=== PATIENT | female | born 1995 | race Caucasian/White ===

== ENCOUNTER → 2021-07-22 | Outpatient (CLI) | payer OTHER ==
--- NOTE | 2021-07-23 06:59 | MR ---
EXAMINATION TYPE: MR brain wo/w con DATE OF EXAM: 07/22/2021 COMPARISON: NONE HISTORY: 25-year-old female Q07.00, Headaches, Chiari malformation decompression TECHNIQUE: Multiplanar, multisequence images of the brain and brainstem were acquired before and aft er administration of 6 mL IV Gadavist. Diffusion weighted imaging is performed. FINDINGS: No evidence for acute infarction, hemorrhage, mass, mass effect, midline shift, herniation, effacemen t of basal cisterns, or extra-axial fluid collection. The ventricles and sulci are age-appropriate. Major intracranial flow voids are intact. T2/FLAIR weighted sequences show no white matter signal abnormality. Midline structures demonstrate normal morphology. Post surgical changes of the cerebellar/suboccipital decompression with craniectomy. There is some re sidual 4 mm of cerebellar tonsillar ectopia and some crowding on the right, refer to sagittal image 1 7. Post contrast images demonstrate no evidence of pathologic enhancement. Dural venous sinuses are pat ent. Moderate mucosal thickening ethmoid air cells. Slight leftward nasal septal deviation. Globes are int act. IMPRESSION: 1. No acute intracranial abnormality seen. No enhancing intracranial lesions. 2. Previous suboccipital decompression. 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 3. Moderate chronic ethmoid sinus disease.
== END | disposition home or self-care (01) ==
LOC: RADMRIMAIN 10:38
PROVIDERS: ATTEND Family Medicine
DX: G93.5 Compression of brain (principal); J32.2 Chronic ethmoidal sinusitis
CPT/HCPCS: 70553; A9585

== ENCOUNTER → 2021-09-02 | Outpatient (CLI) | payer OTHER ==
--- NOTE | 2021-09-02 10:32 | US ---
EXAMINATION TYPE: US gallbladder DATE OF EXAM: 09/02/2021 COMPARISON: NONE CLINICAL HISTORY: R1011 RT UPPER QUAD PAIN. RUQ pain. Patient had fibromas removed in 2018 from the a [facility]. EXAM MEASUREMENTS: Liver Length: 12.4 cm Gallbladder Wall: 0.2 cm CBD: 0.3 cm Right Kidney: 10.8 x 5.8 x 4.2 cm Exam is limited due to overlying bowel gas. Pancreas: Slightly limited visibility of tail. Liver: Appears coarse in echotexture. Gallbladder: Appears anechoic. Evidence for sonographic Field's sign: No CBD: Portions seen appear wnl Right Kidney: No hydronephrosis or masses seen IMPRESSION: 1. No discrete ultrasound abnormality right upper quadrant.
== END | disposition home or self-care (01) ==
LOC: RADUSWWP 08:30
PROVIDERS: ATTEND Family Medicine
DX: R10.11 Right upper quadrant pain (principal)
CPT/HCPCS: 76705

== ENCOUNTER → 2021-09-27 | Outpatient (CLI) | payer OTHER ==
--- NOTE | 2021-09-27 16:00 | CT ---
EXAMINATION TYPE: CT abdomen pelvis w con DATE OF EXAM: 09/27/2021 COMPARISON: No previous CT scan is available for comparison HISTORY: abdominal pain, nausea, vomiting, diarrhea CT DLP: 401.9 mGycm Automated exposure control for dose reduction was used. TECHNIQUE: Helical acquisition of images was performed from the lung bases through the pelvis. CONTRAST: Performed with Oral Contrast and with IV Contrast, patient injected with 100 mL of Isovue 300. FINDINGS: LUNG BASES: No significant abnormality is appreciated. LIVER/GB: No significant abnormality is appreciated. PANCREAS: No significant abnormality is seen. SPLEEN: No significant abnormality is seen. ADRENALS: No significant abnormality is seen. KIDNEYS: No significant abnormality is seen. FREE AIR: No free air is visualized. RETROPERITONEAL ADENOPATHY: None visualized REPRODUCTIVE ORGANS: Questionable vaginal pessary. No gross uterine or adnexal mass. URINARY BLADDER: No significant abnormality is seen. PELVIC ADENOPATHY: No pathologically enlarged pelvic lymph nodes. OSSEOUS STRUCTURES: Unremarkable visualized bones. BOWEL: Grossly unremarkable stomach, duodenum and small bowel. Diffuse mild wall thickening of the c olon, nonspecific. Chronic colitis cannot be excluded. No evidence of acute appendicitis. OTHER: Unremarkable abdominal aorta. Minimal presacral fluid. IMPRESSION: Nonspecific mild diffuse wall thickening of the colon, chronic colitis can't be excluded, for clinica l correlation and further workup. Otherwise no definite acute abnormality or suspicious lesion seen i n the abdomen or the pelvis.
== END | disposition home or self-care (01) ==
LOC: RADCTMAIN 11:47
PROVIDERS: ATTEND Family Medicine
DX: K63.89 Other specified diseases of intestine (principal)
CPT/HCPCS: 74177; Q9967

== ENCOUNTER → 2022-04-13 | Outpatient (CLI) | payer BC ==
--- NOTE | 2022-04-15 13:27 | MR ---
EXAMINATION TYPE: MR femur/thigh LT wo con, MR femur/thigh RT wo con DATE OF EXAM: 04/13/2022 6:57 AM CLINICAL INDICATION:Female, 26 years old with history of Q85.01 NEUROFIBROMATOSIS, TYPE 1; COMPARISON: Collateral side same day. 08/17/2021 MRI femur. TECHNIQUE: Multiplanar multisequence bilateral thigh MRI without IV contrast including proton density , T2 sequences. FINDINGS: Multiple presumably peripheral nerve sheath tumors given history of neurofibromatosis type I. Example s of these lesions which are lower T1 high T2/high PD signal: Medial and anterior to the left biceps femoris long head series 701 image 25 in the myofascial planes measuring up to 18 x 15 mm. Left inner thigh subcutaneous lesion measuring 6 mm left anterior thigh myofascial plane measuring 14 x 8 mm. No evidence for plexiform neurofibromas. No evidence for acute fracture no evidence for muscular atrophy. Bone marrow signal is similar to elli or on 08/17/2021. Vascular structures appear within appropriate limits. Visualized hips and knee joints are within norm al limits. IMPRESSION: 1. Significant change from prior, Bilateral lesions most consistent with peripheral nerve sheath braxton ors such as neurofibromas in setting of neurofibromatosis type 1. No plexiform neurofibromas identif ied. No suspicious masses. 2. No obvious acute process within the thighs bilaterally.
== END | disposition home or self-care (01) ==
LOC: RADMRIMAIN 06:02
PROVIDERS: ATTEND Family Medicine
DX: Q85.01 Neurofibromatosis, type 1 (principal)

== ENCOUNTER 2022-07-21 08:04 | Day surgery (SDC) | payer BC ==
[2022-07-15 13:41] VITALS: BMI 24.0
[~2022-07-21 08:04] MED LIST: SODIUM CHLORIDE 0.9% 1,000 ML IV SCH
[2022-07-21 08:25] VITALS: BP 115/72; PULSE 90; RESP 16; TEMP 98.6
[2022-07-21] MEDS ORDERED: SODIUM CHLORIDE 0.9% 500 ML 500 ML IV ONE (09:00)
--- NOTE | 2022-07-21 19:02 | P.EPPROC ---
- EP Procedure Note Electrophysiology Procedure Note: Diagnosis Recurrent syncope Baseline twelve-lead EKG shows sinus mechanism normal FL narrow QRS normal ST segments no delta waves heart rate 80 beats a minute Tilt table test per protocol Baseline blood pressure 119/65 mmHg, Baseline heart rate 79 beats a minute Patient was tilted upright at an angle of 70 per protocol Mild fluctuations in blood pressure noted down to 91/50 mmHg intermittently, associated with mild increase in heart rate. During such periods the patient complained of nausea, warmth and weakness However her blood pressure will normalize subsequently No syncope Impression Normal twelve-lead EKG Neurocardiogenic phenomenon with mild increase in heart rate and mild drop in blood pressure from baseline with associated symptoms of nausea warm and weakness No loss of consciousness
== END 2022-07-21 09:53 | disposition home or self-care (01) ==
LOC: CATHEP 08:04
PROVIDERS: ATTEND Internal Medicine Clinical Cardiac Electrophysiology
DX: R55 Syncope and collapse (principal); R00.2 Palpitations; Q85.01 Neurofibromatosis, type 1
CPT/HCPCS: 81025; 82533; 93660

== ENCOUNTER → 2023-01-09 | Outpatient (CLI) | payer BC ==
--- NOTE | 2023-01-12 08:24 | MR ---
EXAMINATION TYPE: MR brain wo/w con DATE OF EXAM: 01/09/2023 10:11 PM CLINICAL INDICATION:Female, 27 years old with history of G93.5, Chiari malformation type 1, Migraines , Follow-up on Chiari COMPARISON: 07/22/2021 TECHNIQUE: Multi planar, multi sequence imaging was performed through the brain including: T1, T2, In version recovery, susceptibility weighted imaging and gradient echo imaging and Diffusion weighted im aging. The patient was then given intravenous contrast and multi planar, T1 fat-saturation images wer e obtained. IV Contrast: 5.5 cc Gadavist FINDINGS: Cerebellar tonsil extends 4 mm below the foramen magnum. Susceptibility artifact in the posterior nec k soft tissues compatible with surgical change. There is hemosiderin deposition identified with corona ing artifact on susceptibility weighted imaging. No abnormal postcontrast enhancement in the surgical bed. The allen-white junctions, ventricular system, basal cisterns appear unremarkable. Diffusion-roby ghted imaging shows no evidence of restricted diffusion to suggest acute/subacute infarct. Intracrani al arterial flow voids are maintained. Midline structures show no abnormality. After administration of gadolinium, no abnormal enhancement is seen. The bone marrow signal is within normal limits. Paranasal sinuses and mastoid air cells: No significant paranasal sinus disease. Visualized orbits: Orbital contents are intact. IMPRESSION: 1. Mild cerebellar tonsillar ectopia. Findings similar to prior 2. No evidence of intracranial mass, acute/subacute infarct, or abnormal enhancement.
== END | disposition home or self-care (01) ==
LOC: RADMRIMAIN 21:15
PROVIDERS: ATTEND Family Medicine
DX: G93.5 Compression of brain (principal); Q04.8 Other specified congenital malformations of brain
CPT/HCPCS: 70553; A9585

== ENCOUNTER → 2023-08-17 | Outpatient (CLI) | payer BC ==
--- NOTE | 2023-08-17 09:53 | USB ---
Reason for Exam: Clinical finding. Indicated Problems: Pain of the right side (Focal) for 3 Month(s) : 0900. Patient History: Menarche at age 14. Maternal grandmother had ovarian cancer, age 80. Last menstrual period: 08/10/2023 Technique: Method: Targeted. Doppler: Color. Patient Position: Supine. Prior Study Comparison: No prior studies available for comparison. Findings: The area of palpable concern of the right breast, the axilla of the right breast and the retroareolar of the right breast were scanned. Targeted ultrasound 9:00 right breast including scanning of the subareolar region and axilla. At the 9:00 site of patient's pain, very dense tissues are present. No solid or cystic lesion. There is a nonenlarged 1.1 x 0.9 x 0.5 cm lymph node in the axilla that shows a mildly thickened cortex up to 4.7 mm. Likely reactive/post inflammatory. It can be reassessed in 3 months. Overall Assessment: Probably benign, BI-RAD 3 Management: Diagnostic Breast Ultrasound of the right breast. For the mildly thickened axillary node, probably reactive. Further clinical management of the patient's 9:00 right breast pain. If any enlarging palpable area is detected, the area can be rescanned. Results were given to the patient verbally at the time of exam. Electronically signed and approved by: Baldemar Moore M.D. Radiologist
== END | disposition home or self-care (01) ==
LOC: RADUSWWP 09:28
PROVIDERS: ATTEND Family Medicine
DX: N63.10 Unspecified lump in the right breast, unspecified quadrant (principal)

== ENCOUNTER → 2024-03-27 | Outpatient (CLI) | payer BC ==
--- NOTE | 2024-03-27 09:52 | USB ---
Reason for Exam: Clinical finding. Patient History: Menarche at age 14. Maternal grandmother had ovarian cancer, age 80. Technique: Method: Targeted. Findings: The lateral section of the breast of the right breast, the axilla of the right breast and the retroareolar of the right breast were scanned. No solid or cystic masses are identified. Normal-appearing right axillary lymph node identified. Overall Assessment: Benign, BI-RAD 2 Management: Screening Mammogram of both breasts at age 40. A clinical breast exam by your physician is recommended on an annual basis and results should be correlated with mammographic findings. This exam should not preclude additional follow-up of suspicious palpable abnormalities. Results were given to the patient verbally at the time of exam. [facility], , 03/27/2024 9:50 AM. Electronically signed and approved by: Rolando Benitez M.D. Radiologis
== END | disposition home or self-care (01) ==
LOC: RADUSWWP 09:17
PROVIDERS: ATTEND Family Medicine
DX: N63.10 Unspecified lump in the right breast, unspecified quadrant (principal)